=== PATIENT | female | born 1980 | race Caucasian/White ===

== ENCOUNTER 2020-10-19 05:42 | Day surgery (SDC) | payer SELFPAY ==
[2020-10-13 13:09] LABS: BASOPHILS % (AUTO) 0.6 % (0-1); EOSINOPHILS # (AUTO) 0.1 X10'3 (0-0.9); LYMPHOCYTES # (AUTO) 2.1 X10'3 (1.1-4.8); LYMPHOCYTES % (AUTO) 26.5 % (21-51); MEAN CORPUSCULAR HGB CONC 33.8 g/dL (33.0-36.5); MEAN CORPUSCULAR VOLUME 91.9 FL (78-98); MEAN PLATELET VOLUME 8.9 FL (7.4-10.4); MONOCYTES # (AUTO) 0.6 X10'3 (0-0.9); MONOCYTES % (AUTO) 7.3 % (2-12); NEUTROPHILS # (AUTO) 5.1 X10'3 (1.8-7.7); NEUTROPHILS % (AUTO) 64.6 % (42-75); PRE OP HEMATOCRIT 42.8 % (35.0-45.0); PRE OP HEMOGLOBIN 14.4 g/dL (12.0-16.0); PRE OP PLATELET COUNT 249 X10'3 (140-440); RED BLOOD COUNT 4.66 X10'6 (4.20-5.60); RED CELL DISTRIBUTION WIDTH 12.9 % (11.5-14.5)
[2020-10-13 13:22] LABS: PRE OP INR 1.1 INR; PRE OP PROTIME 11.4 SECONDS (9.0-12.0)
[2020-10-13 13:24] LABS: ALBUMIN 3.9 G/DL (3.4-5.0); ALKALINE PHOSPHATASE 98 IU/L (46-116); BLOOD UREA NITROGEN 21 MG/DL (7-18); BUN/CREATININE RATIO 28.4 (6.6-38.0); CALCIUM 9.2 MG/DL (8.5-10.1); CREATININE 0.74 MG/DL (0.40-0.90); PRE OP ALT 17 U/L (30-65); PRE OP AST 15 U/L (10-37); PRE OP BILIRUB, TOTAL 0.5 MG/DL (0.0-1.0); PRE OP GLUCOSE 86 MG/DL (70-104); TOTAL CARBON DIOXIDE 22.5 MMOL/L (24-32); eGFR 86 ML/MIN
[2020-10-13 13:40] LABS: CLARITY,URINE SLIGHTLY CLOUDY (Clear); COLOR,URINE YELLOW (Yellow); GLUCOSE, URINE NEGATIVE (Neg); KETONES,URINE NEGATIVE (Neg); LEUKOCYTE ESTERASE ,URINE NEGATIVE (Neg); NITRITES, URINE NEGATIVE (Neg); OCCULT BLOOD,URINE TRACE-INTACT (Neg); PROTEIN,URINE NEGATIVE (Neg); UROBILINOGEN,URINE 0.2 E.U/dL (0.2-1.0)
[2020-10-13 13:41] LABS: UA COLLECTION TYPE CLN CATCH MIDSTREAM
[2020-10-13 13:44] LABS: CHLORIDE 104 MMOL/L (99-107); PRE OP ANION GAP 11 (8-16); PRE OP SODIUM 137 MMOL/L (135-145)
[2020-10-13 13:47] LABS: HCG SERUM QL NEGATIVE
[2020-10-13 14:02] LABS: SQUAMOUS EPITHELIAL CELL,UR MODERATE /LPF (FEW)
[2020-10-13 14:03] LABS: MUCUS STRANDS FEW /LPF (Neg)
[2020-10-13 14:04] LABS: HYALINE CASTS 0-3 /LPF (NEGATIVE)
[2020-10-13 14:05] LABS: BACTERIA,URINE FEW /HPF (Neg); WBC,URINE 0-4 /HPF (0-4)
[2020-10-19] VITALS (17 sets, daily range): BP systolic 97–128; BP diastolic 58–101
[~2020-10-19] VITALS: Ht 167.6 cm; Wt 75.8 kg
[~2020-10-19 05:42] MED LIST: SERT100T10 PO; THYROID MED PO; ceFOXitin 2GM-NS 100mL ADDvant 100 ML IV ONE; famotidine 20mg tablet PO ONE; ringers solution, lacted 1,000 ML IV SCH
[2020-10-19] MEDS ORDERED: LIDOcaine 1% (10mg/ml) 2ml vial ONE (06:10)
[2020-10-19] MEDS ORDERED: BUPIVAcaine/PF 2.5 mg/ml (0.25%) 30ml vial ONE (06:40)
[2020-10-19] MEDS ORDERED: LIDOcaine 1% 30ml preserv. free vial ONE (06:40)
[2020-10-19] MEDS ORDERED: morphine 10mg/ml inj. ONE (06:40)
[2020-10-19] MEDS ORDERED: dexamethasone sod phosphate 10mg/ml inj ONE (07:12)
[2020-10-19] MEDS ORDERED: neostigmine methylsulfate 1 MG/ML 10ml vial ONE (07:12)
[2020-10-19] MEDS ORDERED: ondansetron/PF 4mg/2ml inj ONE ×2 (07:12→07:26)
[2020-10-19] MEDS ORDERED: sevoflurane 250ml liquid IH ONE (07:12)
[2020-10-19] MEDS ORDERED: ketorolac trometh. 30mg/ml inj. ONE (07:12)
[2020-10-19] MEDS ORDERED: midazolam 2 mg/2 ml injection ONE (07:16)
[2020-10-19] MEDS ORDERED: LIDOcaine 2% (20mg/ml) 5ml vial ONE (07:16)
[2020-10-19] MEDS ORDERED: propofol inj 20 ML IV ONE (07:16)
[2020-10-19] MEDS ORDERED: fentaNYL/PF 50MCG/1 ML 2ML syringe ONE (07:16)
[2020-10-19] MEDS ORDERED: rocuronium 10mg/ml inj IV ONE (07:27)
[2020-10-19] MEDS ORDERED: ondansetron/PF 4mg/2ml inj IV PRN (08:00)
[2020-10-19] MEDS ORDERED: morphine 4 MG/ML inj SYRINge IV PRN (08:00)
[2020-10-19] MEDS ORDERED: ringers solution, lacted 1,000 ML IV SCH (08:00)
[2020-10-19] MEDS ORDERED: meperidine/PF 25mg/ml syringe IV PRN ×3 (08:00)
[2020-10-19] MEDS ORDERED: proCHLORperazine 10 MG/2 ml inj IV PRN (08:00)
[2020-10-19] MEDS ORDERED: morphine 2 MG/ML inj. syringe IV PRN (08:00)
[2020-10-19] MEDS ORDERED: acetaminophen 1,000mg/100ml IV 100 ML IV ONE (08:30)
[2020-10-19] MEDS ORDERED: glycopyrrolate 0.2mg/ml inj ONE (08:33)
--- NOTE | 2020-10-19 08:40 | NUR ---
Received from OR via [facility], accompanied by Anesthesiologist DR GRIMES and report given by Anesthesiologist. PT VERY DROWSY, NO S/S OF DISTRESS/DISCOMFORT, PT DENIES PAIN, ABDOMEN W/3 LAP SITES W/DERMABOND CDI. SAUL PAD IN PLACE, NO DRAINAGE. Addendum: 10/19/20 at 0900 by Merry Weston RN Amended: Links added.
[2020-10-19] MEDS ORDERED: ibuprofen 200mg tablet PO ONE (10:45)
--- NOTE | 2020-10-19 11:30 | NUR ---
PT UP AND ABLE TO AMBULATE SAFELY, VOIDED, C/O OSMAN, 600 MG IBUPROFEN GIVEN. PT TOLERATED CRACKERS AND WATER PRIOR TO TAKING IBUPROFEN. D/C INSTRUCTIONS GIVEN AND GONE OVER W/PT WHO VERBALIZED UNDERSTANDING. PT D/CD TO HOME VIA W/C TO PRIVATE VEHICLE W/O INCIDENT. Addendum: 10/19/20 at 1200 by Merry Weston RN Amended: Links added.
== END 2020-10-19 11:30 | disposition home or self-care (01) ==
LOC: PAS 05:42
PROVIDERS: ATTEND Obstetrics & Gynecology
DX: F32.81 Premenstrual dysphoric disorder (principal); N73.6 Female pelvic peritoneal adhesions (postinfective); F32.9 Major depressive disorder, single episode, unspecified; E66.9 Obesity, unspecified; Z68.27 Body mass index [BMI] 27.0-27.9, adult; Z90.79 Acquired absence of other genital organ(s); Z90.721 Acquired absence of ovaries, unilateral; Z90.710 Acquired absence of both cervix and uterus; Z98.51 Tubal ligation status; Z20.822 Contact with and (suspected) exposure to COVID-19; Z79.01 Long term (current) use of anticoagulants; Z79.899 Other long term (current) drug therapy; Z90.49 Acquired absence of other specified parts of digestive tract
CPT/HCPCS: 36415; 58661; 80053; 81001; 82948; 84703; 85025; 85610; 85730; 86885; 86900; 86901; 87635; C1758; J0131; J0694; J1100; J1885; J2001; J2250; J2270; J2405; J2704; J2710; J3010; J3490; J7120; A4618; A7000